=== PATIENT | male | born 1980 | race Caucasian/White ===

== ENCOUNTER 2019-08-17 19:31 | Emergency (ER) | payer OTHER ==
[2019-08-17 19:39] VITALS: BP 127/93
--- NOTE | 2019-08-17 20:04 | ER Document Report ---
ED Hand/Wrist Injury - General Chief Complaint: Hand Injury Stated Complaint: THUMB LACERATION Time Seen by Provider: 08/17/19 19:56 Primary Care Provider: REED,ERIKA [Primary Care Provider] - Follow up as needed Mode of Arrival: Ambulatory Notes: 39-year-old male presented to ED for avulsion injury to the end of the left thumb. He states he was cutting green onions at 6:03 PM at work. When his knife went through the cotton glove and cut the end of his finger off. He states his tetanus was about 3 or 4 years ago. He is alert oriented respirations regular and unlabored speaking in full sentences. - HPI Injury to: Thumb - Left Onset: This evening - 603pm this evening Where: Work Timing: Still present Quality of pain: Sharp, Throbbing Severity: Moderate Pain Level: 4 Context: Other - Avulsion to the end of the thumb - Related Data Allergies/Adverse Reactions: No Known Allergies Allergy (Unverified 08/17/19 19:52) Past Medical History - General Information source: Patient - Social History Smoking Status: Current Every Day Smoker Cigarette use (# per day): Yes - ppd Smoking Education Provided: Yes - 4 min Frequency of alcohol use: None Drug Abuse: None Occupation: manager instrumentation tax accounting assistant Family History: Reviewed & Not Pertinent Patient has suicidal ideation: No Patient has homicidal ideation: No - Past Medical History Cardiac Medical History: Reports: None Pulmonary Medical History: Reports: None EENT Medical History: Reports: None Neurological Medical History: Reports: None Endocrine Medical History: Reports: None Renal/ Medical History: Reports: None Malignancy Medical History: Reports None GI Medical History: Reports: None Musculoskeletal Medical History: Reports Hx Musculoskeletal Deformity, Reports Hx Musculoskeletal Trauma Skin Medical History: Reports None Psychiatric Medical History: Reports: None Traumatic Medical History: Reports: Hx Fractures - Left thumb Infectious Medical History: Reports: None Past Surgical History: Reports: Hx Orthopedic Surgery - Knee scope and left thumb - Immunizations Immunizations up to date: Yes Hx Diphtheria, Pertussis, Tetanus Vaccination: Yes Review of Systems - Review of Systems Constitutional: No symptoms reported EENT: No symptoms reported Cardiovascular: No symptoms reported Respiratory: No symptoms reported Gastrointestinal: No symptoms reported Genitourinary: No symptoms reported Male Genitourinary: No symptoms reported Musculoskeletal: No symptoms reported Skin: Other - Avulsion tip of left thumb Hematologic/Lymphatic: No symptoms reported Neurological/Psychological: No symptoms reported -: Yes All other systems reviewed and negative Physical Exam - Vital signs Vitals: Temp Pulse Resp BP Pulse Ox 97.7 F 56 L 20 127/93 H 98 08/17/19 19:37 08/17/19 19:37 08/17/19 19:37 08/17/19 19:37 08/17/19 19:37 Interpretation: Normal - General General appearance: Appears well, Alert - HEENT Head: Normocephalic, Atraumatic Eyes: Normal Pupils: PERRL - Respiratory Respiratory status: No respiratory distress Chest status: Nontender Breath sounds: Normal Chest palpation: Normal - Cardiovascular Rhythm: Regular Heart sounds: Normal auscultation Murmur: No - Abdominal Inspection: Normal Distension: No distension Bowel sounds: Normal Tenderness: Nontender Organomegaly: No organomegaly - Back Back: Normal, Nontender - Extremities General upper extremity: Normal inspection, Nontender, Normal color, Normal ROM, Normal temperature General lower extremity: Normal inspection, Nontender, Normal color, Normal ROM, Normal temperature, Normal weight bearing. No: Shirlene's sign - Neurological Neuro grossly intact: Yes Cognition: Normal Orientation: AAOx4 Breanna Coma Scale Eye Opening: Spontaneous [place] Coma Scale Verbal: Oriented [place] Coma Scale Motor: Obeys Commands Breanna Coma Scale Total: 15 Speech: Normal Motor strength normal: LUE, RUE, LLE, RLE Sensory: Normal - Psychological Associated symptoms: Normal affect, Normal mood - Skin Skin Temperature: Warm Skin Moisture: Dry Skin Color: Normal Location of irregularity: Extremities - Avulsion to the tip of the left thumb Irregularity with: Swelling, Tenderness Course - Re-evaluation Re-evalutation: 08/17/19 21:12 Avulsion to the tip of the left thumb was cleaned well with soap and water dried bacitracin and Xeroform gauze applied and then finger splint applied to the thumb to protect the injury. There was no laceration to be repaired it was an avulsion of the end of the finger. Patient was instructed on care for the wound and patient was discharged home. Patient was instructed to follow-up with Workmen's Comp. doctor in the next 3 to 5 days to ensure that the wound was healing properly. Patient verbalized understanding and is with treatment plan - Vital Signs Vital signs: Temp Pulse Resp BP Pulse Ox 97.7 F 56 L 20 127/93 H 98 08/17/19 19:50 08/17/19 19:37 08/17/19 19:37 08/17/19 19:37 08/17/19 19:37 Discharge - Discharge Clinical Impression: Avulsion tip left thumb Condition: Stable Disposition: HOME, SELF-CARE Additional Instructions: Avulsion Injury You have an avulsion injury -- a loss of skin which can't be helped by suturing. When large, these injuries can require skin grafting. Smaller defects or shallow avulsions usually heal well with dressings. Keep the dressing clean and dry. If the bandage becomes wet, remove it, blot the area dry, and apply a fresh dressing. Change the dressings every day. Complete healing may take anywhere from 10 days to two months. The healing time depends on the size and depth of the avulsion and on the amount of crushing of underlying tissues. Re-examination by the physician is often necessary. If any signs of infection occur (swelling, redness, increasing tenderness, red streaks, profuse purulent drainage from the avulsion, tender lumps in the armpit or groin above the avulsion, or fever), see your doctor immediately. Leave Xeroform gauze on for 24 hours then remove dressing and clean injury 3 times a day and apply bacitracin and new dressing keep finger clean and dry for 10 days Antibiotic Ointment Protection Your wounds are such that dressing them is not practical or optional. After cleansing, you should apply a thin coating of antibiotic ointment (Bacitracin, not Neosporin) to the wounds at least three times daily. This lessens infection risk, and may decrease the amount of scarring. Use a q-tip or dull butter knife, not your finger, to apply this ointment. Any debris or ooze which builds up in the ointment should be gently rubbed off with a sterile gauze pad. Harder crusting may need to be gently scrubbed off with a clean wash cloth with soap and warm water, perhaps applying a warm, wet wash cloth to the wound for ten minutes first. Development of redness, severe itching, or blistering may mean allergy to the ointment. See the doctor. Soap Cleansing Gently wash the wound daily using a mild soap (like Ivory, Phisoderm, Neutrogena). Use warm water, rubbing gently until all debris, ooze, and crusting have been washed from the wound. Allow to dry briefly (about 10 minutes) after cleaning. Repeat this cleansing at least three times a day for the first two days and then once or twice a day. There is been a thumb splint applied to your thumb for protection from bumping the end of the thumb. There is no fractures to the thumb this is to protect your avulsion injury Follow-up with your Worker's Comp. doctor in the next 3 to 5 days to ensure wound is healing FOLLOW-UP CARE: If you have been referred to a physician for follow-up care, call the physicians office for an appointment as you were instructed or within the next two days. If you experience worsening or a significant change in your symptoms, notify the physician immediately or return to the Emergency Department at any time for re-evaluation. Forms: Elevated Blood Pressure, Smoking Cessation Education, Return to Work Referrals: [facility] [Primary [facility]] - Follow up as needed
== END 2019-08-17 20:15 | disposition home or self-care (01) ==
LOC: ER 19:31
DX: S69.92XA Unspecified injury of left wrist, hand and finger(s), initial encounter (principal); W26.0XXA Contact with knife, initial encounter; Y93.G3 Activity, cooking and baking; Y99.0 Civilian activity done for income or pay; F17.210 Nicotine dependence, cigarettes, uncomplicated
CPT/HCPCS: 99282; 99406